=== PATIENT | male | born 1990 | race Caucasian/White ===

== ENCOUNTER 2017-11-14 17:46 | Emergency (ER) | payer MEDICAID, OTHER ==
[~2017-11-14] VITALS: Ht 182.9 cm; Wt 93.2 kg
[~2017-11-14 17:46] MED LIST: LORA-269 PO; ONDA8TAB9 PO
[2017-11-14 18:03] VITALS: BP 112/73
[2017-11-14] MEDS ORDERED: LORazepam 1 MG tablet PO ONE (18:25)
== END 2017-11-14 18:51 | disposition home or self-care (01) ==
LOC: ER 17:47
DX: F41.9 Anxiety disorder, unspecified (principal); F15.90 Other stimulant use, unspecified, uncomplicated
CPT/HCPCS: 99284

== ENCOUNTER 2017-11-15 11:40 | Emergency (ER) | payer MEDICAID, OTHER ==
[~2017-11-15] VITALS: Ht 182.9 cm; Wt 94.8 kg
[2017-11-15 11:45] VITALS: BP 134/73
[2017-11-15] MEDS ORDERED: buprenorphine/naloxone 2-0.5mg sublingual tablet SL ONE (12:45)
== END 2017-11-15 13:15 | disposition home or self-care (01) ==
LOC: ER 11:41
DX: F11.93 Opioid use, unspecified with withdrawal (principal); F15.90 Other stimulant use, unspecified, uncomplicated
CPT/HCPCS: 99282